=== PATIENT | female | born 1950 | race Caucasian/White ===

== ENCOUNTER 2018-11-14 15:05 | Emergency (ER) | payer OTHER, MEDICAID ==
[~2018-11-14] VITALS: Ht 165.1 cm; Wt 60.4 kg
[~2018-11-14 15:05] MED LIST: AMOX1TAB10 PO; ATEN-51 PO; GABA300C16 PO; HYDR-3980 PO; LD2VS100B MM; LISI1TAB8 PO; LOSA50TA14 PO; OMEP40CA3 PO; ONDA4TAB35 PO; TRIA15CR55 TOP
[2018-11-14 15:12] VITALS: Ht 165.1 cm; Wt 60.4 kg
[2018-11-14] MEDS ORDERED: ACETAMINOPHEN 325 MG TAB PO STA (15:17)
[2018-11-14] MEDS ORDERED: SODIUM CHLORIDE 0.9% 1L BAG IV* STA (15:17)
[2018-11-14] MEDS ORDERED: LORAZEPAM 2 MG INJ IV ONE (16:30)
[2018-11-14 20:19] VITALS: BP 125/64; PULSE 85; RESP 14
== END 2018-11-14 22:28 | disposition short-term general hospital (02) ==
LOC: E/R 15:05
DX: N17.9 Acute kidney failure, unspecified (principal); R40.2142 Coma scale, eyes open, spontaneous, at arrival to emergency department; R40.2362 Coma scale, best motor response, obeys commands, at arrival to emergency department; R40.2252 Coma scale, best verbal response, oriented, at arrival to emergency department; I10 Essential (primary) hypertension; R50.9 Fever, unspecified; Z87.891 Personal history of nicotine dependence
CPT/HCPCS: 36415; 51702; 70450; 71045; 80053; 81001; 82550; 82962; 83605; 84484; 85025; 85610; 85730; 87040; 87086; 93005; 96374; 99285; J2060; J7030

== ENCOUNTER 2018-11-20 20:21 | Emergency (ER) | payer OTHER, MEDICAID ==
[~2018-11-20] VITALS: Ht 162.6 cm; Wt 60.1 kg
[~2018-11-20 20:21] MED LIST changes: +LISI1TAB24 PO; -LISI1TAB8 PO
[2018-11-20 20:23] VITALS: Ht 162.6 cm; Wt 60.1 kg
[2018-11-20] MEDS ORDERED: HYDROmorphONE 1 MG/ML SYG IV STA (20:41)
[2018-11-20] MEDS ORDERED: SOD CHLORIDE 0.9% 1,000 ML IV STA (20:41)
[2018-11-20] MEDS ORDERED: ONDANSETRON 4 MG INJ IV STA (20:41)
[2018-11-20] MEDS ORDERED: METHYLPREDNISOLONE 125 MG INJ IV ONE (21:00)
[2018-11-20] MEDS ORDERED: CEFEPIME 2GM/50 ML (PMX) 50 ML IVPB ONE (22:30)
[2018-11-20] MEDS ORDERED: VANCOMYCIN 1 GM (PMX) 250 ML IVPB ONE (22:30)
[2018-11-20] MEDS ORDERED: SODIUM CHLORIDE 0.9% 1L BAG IV* STA (22:32)
[2018-11-21] MEDS ORDERED: NALOXONE (0.4 MG/ML) INJ IV ONE
[2018-11-21 03:30] VITALS: BP 127/59; PULSE 89; RESP 18
== END 2018-11-21 03:48 | disposition home or self-care (01) ==
LOC: E/R 20:21
DX: R10.13 Epigastric pain (principal); I10 Essential (primary) hypertension; F17.210 Nicotine dependence, cigarettes, uncomplicated; D72.825 Bandemia
CPT/HCPCS: 51702; 71045; 74176; 76705; 80053; 81001; 82550; 83605; 83690; 83880; 84484; 85025; 87040; 87086; 93005; 96374; 96375; 99285; J0692; J1170; J2310; J2405; J2930; J3370; J7030; 81003